=== PATIENT | female | born 2000 | race African-American/Black ===

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

== ENCOUNTER 2022-06-25 21:50 | Emergency (ER) | payer MEDICAID ==
[~2022-06-25] VITALS: Ht 177.8 cm; Wt 123.0 kg
[~2022-06-25 21:50] MED LIST changes: +CEPH500T PO
[2022-06-25 22:01] VITALS: BP 144/85
[2022-06-25] MEDS ORDERED: ONDANSETRON 4MG ODT PO ONE (23:45)
== END 2022-06-26 00:37 | disposition home or self-care (01) ==
LOC: ER 21:50
DX: T40.721A Poisoning by synthetic cannabinoids, accidental (unintentional), initial encounter (principal); Y92.89 Other specified places as the place of occurrence of the external cause; R11.2 Nausea with vomiting, unspecified; F41.9 Anxiety disorder, unspecified; F32.9 Major depressive disorder, single episode, unspecified; F12.10 Cannabis abuse, uncomplicated
CPT/HCPCS: 99283; Q0162

== ENCOUNTER 2023-07-11 10:24 | Emergency (ER) | payer MEDICAID ==
[~2023-07-11] VITALS: Ht 177.8 cm; Wt 137.0 kg
[2023-07-11 10:36] VITALS: O2SAT 100
[2023-07-11 11:57] LABS: CLARITY URINE TURBID (CLEAR); COLOR URINE YELLOW (YELLOW); GLUCOSE URINE NEGATIVE (NEGATIVE); KETONES URINE NEGATIVE (NEGATIVE); LEUKOCYTE ESTERASE URINE 3+ (NEGATIVE); NITRITE URINE NEGATIVE (NEGATIVE); OCCULT BLOOD URINE 2+ (NEGATIVE); PROTEIN URINE 1+ (NEGATIVE); UROBILINOGEN URINE 0.2 E.U./dL (0.2-1.0)
[2023-07-11 12:21] LABS: SQUAMOUS EPITHELIAL CELL URINE 3+ /lpf (RARE/1+); WBC URINE TNTC /hpf (0-2)
[2023-07-11 12:22] LABS: RBC URINE 15-25 /hpf (0-2)
[2023-07-11 12:23] LABS: BACTERIA URINE 4+
[2023-07-11] MEDS ORDERED: CEPH500C2 MT (13:08)
[2023-07-11] MEDS ORDERED: METR70GE5 VG (13:08)
[2023-07-11 13:22] VITALS: BP 143/77; PULSE 83; RESP 12; TEMP 98
[2023-07-11] MEDS: CEFTRIAXONE SODIUM 1G VIAL IM ONE (13:40)
[2023-07-13 04:08] LABS: CHLAMYDIA TRACHOMATIS NAA Negative (Negative); NEISSERIA GONORRHOEAE NAA Negative (Negative)
== END 2023-07-11 13:46 | disposition home or self-care (01) ==
LOC: ER 10:54
DX: N76.0 Acute vaginitis (principal); F12.90 Cannabis use, unspecified, uncomplicated; F41.9 Anxiety disorder, unspecified; F32.A Depression, unspecified
CPT/HCPCS: 87491; 87591; 81003; 87086; 87186; 87210; 87077; 96372; 99284; J0696; Z7610

== ENCOUNTER 2023-12-15 14:09 | Emergency (ER) | payer MEDICAID ==
[~2023-12-15] VITALS: Ht 175.3 cm; Wt 174.0 kg
[~2023-12-15 14:09] MED LIST changes: +CEPH500C2 MT; +METR70GE27 VG
[2023-12-15 14:14] VITALS: O2SAT 100
[2023-12-15] MEDS: MORPHINE SULFATE 4 MG/ML INJ (FOR IV/IM USE) IM ONE (17:02)
[2023-12-15 19:08] VITALS: BP 130/68; PULSE 88; RESP 16; TEMP 36.89184; O2SAT 100
== END 2023-12-15 19:08 | disposition home or self-care (01) ==
LOC: ER 14:09
DX: S93.04XA Dislocation of right ankle joint, initial encounter (principal); F41.9 Anxiety disorder, unspecified; F32.9 Major depressive disorder, single episode, unspecified; F12.10 Cannabis abuse, uncomplicated; Z79.899 Other long term (current) drug therapy; X58.XXXA Exposure to other specified factors, initial encounter; Y93.89 Activity, other specified; Y92.89 Other specified places as the place of occurrence of the external cause; Y99.8 Other external cause status
CPT/HCPCS: 73610; 27840; 96372; 99284; J2270; Z7610

== ENCOUNTER 2023-12-29 09:48 | Emergency (ER) | payer MEDICAID ==
[~2023-12-29] VITALS: Ht 177.8 cm; Wt 127.0 kg
[2023-12-29 10:08] VITALS: BP 150/89; O2SAT 100
[2023-12-29 13:06] VITALS: PULSE 78; RESP 17; TEMP 36.72516; O2SAT 100
== END 2023-12-29 13:07 | disposition home or self-care (01) ==
LOC: ER 09:48
DX: M79.671 Pain in right foot (principal); F41.9 Anxiety disorder, unspecified; F12.90 Cannabis use, unspecified, uncomplicated; F32.A Depression, unspecified; Z79.899 Other long term (current) drug therapy
CPT/HCPCS: 29515; 73600; 73630; 99284